=== PATIENT | female | born 1960 | race Caucasian/White ===

== ENCOUNTER 2020-07-30 09:00 | Observation (INO) ==
[2020-07-30] MEDS ORDERED: NS 0.9% 1000 ml BAG 1,000 ML IV ONE ×2 (09:49→13:59)
[2020-07-30 10:26] LABS: ABS Lymphocytes 0.8 10^3/ul (1.0-4.8); ABS Monocytes 0.5 10^3/ul (0-0.8); ABS Neutrophils 9.1 10^3/ul (1.5-7.7); Eosinophil % 0.4 %; Hematocrit 45 % (35-47); Hemoglobin 15.3 g/dL (12.0-16.0); Lymphocyte % 7.9 %; Mean Corpuscular HGB Conc 34 g/dL (31-36); Mean Corpuscular Hemoglobin 31 pg (27-31); Mean Corpuscular Volume 90 fL (80-97); Platelet Count 245 10^3/uL (150-450); Red Blood Count 5.02 10^6 /uL (3.70-4.87); Red Cell Distribution Width 13 % (10-15); White Blood Count 10.6 10^3/uL (3.5-10.8)
[2020-07-30] MEDS ORDERED: Ondansetron 4 mg VIAL 2 MG/ML 2 ml VIAL IV ONE (10:27)
[2020-07-30 10:36] LABS: INR 1.04 (0.82-1.09)
[2020-07-30 10:44] LABS: Albumin 4.5 g/dL (3.2-5.2); Albumin/Globulin Ratio 1.5 (1-3); BUN/Creatinine Ratio 23.2 (8-20); C Reactive Protein 2.09 mg/L (<8.01); EGFR African American 85.8 (>60); EGFR Non-African American 70.9 (>60); Globulin 3.1 g/dL (2-4); Potassium 4.2 mmol/L (3.5-5.0); Total Bilirubin 0.5 mg/dL (0.2-1.0); Total Protein 7.6 g/dL (6.4-8.9)
[2020-07-30] MEDS ORDERED: Iohexol 350 (CONTRAST) 500 ML MDV IV ONE (11:23)
[2020-07-30] MEDS ORDERED: Ondansetron 4 mg VIAL 2 MG/ML 2 ml VIAL IV PRN (15:09)
[2020-07-30] MEDS: Lactated Ringers 1000 ml BAG 1,000 ML IV SCH (18:35)
[2020-07-31 06:36] LABS: C Reactive Protein 9.97 mg/L (<8.01)
[2020-07-31] MEDS: Lactated Ringers 1000 ml BAG 1,000 ML IV SCH (06:40)
[2020-07-31 08:32] LABS: ABS Eosinophils 0.2 10^3/ul (0-0.6); ABS Lymphocytes 1.7 10^3/ul (1.0-4.8); ABS Monocytes 0.6 10^3/ul (0-0.8); ABS Neutrophils 5.4 10^3/ul (1.5-7.7); Eosinophil % 2.2 %; Hematocrit 37 % (35-47); Hemoglobin 12.6 g/dL (12.0-16.0); Lymphocyte % 21.6 %; Mean Corpuscular HGB Conc 34 g/dL (31-36); Mean Corpuscular Hemoglobin 30 pg (27-31); Mean Corpuscular Volume 89 fL (80-97); Mean Platelet Volume 7.3 fL (7.4-10.4); Nucleated Red Blood Cells % 0.1; Platelet Count 209 10^3/uL (150-450); Red Blood Count 4.14 10^6 /uL (3.70-4.87); Red Cell Distribution Width 13 % (10-15); White Blood Count 7.9 10^3/uL (3.5-10.8)
[2020-07-31 08:54] LABS: Potassium 4.1 mmol/L (3.5-5.0)
[2020-07-31 09:00] LABS: BUN/Creatinine Ratio 13.8 (8-20); EGFR African American 88.2 (>60); EGFR Non-African American 72.9 (>60)
[2020-07-31] MEDS ORDERED: fentaNYL 100 mcg/2 ml 50 MCG/ML VIAL ONE (13:04)
[2020-07-31] MEDS ORDERED: Midazolam 10 mg/10 ml VIAL 1 mg/ml 10 ml VIAL (10 mg) ONE (13:04)
[2020-07-31 16:09] VITALS: BP 106/53
== END 2020-07-31 16:50 | disposition home or self-care (01) ==
LOC: ED 09:00 → INTOOBSV 15:09 → MED 15:09
PROVIDERS: ADMIT Internal Medicine; ATTEND Internal Medicine